=== PATIENT | female | born 1995 | race Caucasian/White ===

== ENCOUNTER 2024-02-15 08:54 | Day surgery (SDC) | payer OTHER ==
[~2024-02-15] VITALS: Ht 175.3 cm; Wt 72.7 kg
[~2024-02-15 08:54] MED LIST: CEFAZOLIN SODIUM 2 GM/20 ML SYR IV SCH; CELEXA20 MG PO; DULOXETINE HCL60 MG PO; IBLOOD GLUCOSE TEST STRIP 1 EA TEST VI PRN; IMPLANON68 MG; LACTATED RINGER'S 1,000 ML IV SCH; LIDOCAINE HCL 1% 5 ML SDV INJ ONE; ORSYTHIA1 EACH PO; TRAMADOL HCL50 MG PO; ZOLOFT50 MG PO
[2024-02-15 09:29] VITALS: BP 116/70
[2024-02-15] MEDS ORDERED: OXYMETAZOLINE HCL 30 ML BTL NAS SCH (10:00)
[2024-02-15] MEDS ORDERED: fentaNYL citrate 100 MCG/2 ML VIAL ONE (10:27)
[2024-02-15] MEDS ORDERED: DEXAMETHASONE SOD PHOS 4 MG/ML VIAL ONE (10:27)
[2024-02-15] MEDS ORDERED: propofoL 200 MG/20 ML VIAL ONE (10:27)
[2024-02-15] MEDS ORDERED: LIDOCAINE HCL 2% 5 ML SDV ONE (10:27)
[2024-02-15] MEDS ORDERED: MIDAZOLAM HCL 2 MG/2 ML VIAL ONE (10:27)
[2024-02-15] MEDS ORDERED: ondansetron HCL 4 MG/2 ML VIAL ONE (10:27)
[2024-02-15] MEDS ORDERED: droPERidol 5 MG/2 ML VIAL IV PRN (11:30)
[2024-02-15] MEDS ORDERED: PROCHLORPERAZINE EDISYLATE 10 MG/2 ML VIAL IV PRN (11:30)
[2024-02-15] MEDS ORDERED: ondansetron HCL 4 MG/2 ML VIAL IV PRN (11:30)
[2024-02-15] MEDS ORDERED: fentaNYL citrate 50 MCG/ML SDV IV PRN (11:30)
[2024-02-15] MEDS ORDERED: IBLOOD GLUCOSE TEST STRIP 1 EA TEST VI PRN (11:30)
[2024-02-15] MEDS ORDERED: HYDROmorphone HCL 1 MG/ML SYR IV PRN (11:30)
[2024-02-15] MEDS ORDERED: NALOXONE HCL 0.4 MG SYR IV PRN (11:30)
[2024-02-15] MEDS ORDERED: ACETAMINOPHEN 1,000 MG/100 ML VIAL ONE (11:33)
--- NOTE | 2024-02-15 12:00 | NUR ---
02/15/24 1200 Ca Manriquez 1143 PT ARRIVED IN PACU NON RESPONSIVE TO NOXIOUS STIMULI WITH OPA IN PLACE. 1156 PT REACTIVE. OPA REMOVED. 1200 OXYGEN REMOVED. SATS 98-100%. NO C/O'S.
[2024-02-15 12:25] VITALS: BP 114/70
--- NOTE | 2024-02-15 12:29 | NUR ---
LE 1225 PT RETURNED FROM PACU WIDEA AWAKE C/O SINUS PAIN 2-3/10. SIPPING ON WATER. BABY AND PT'S DAD AT BEDSIDE. CALL LIGHT IN PLACE. 1230 JELLO AND CRACKERS GIVEN.
[2024-02-15] MEDS ORDERED: HYDROCODONE/ACETA 5/325 TAB PO PRN (12:30)
--- NOTE | 2024-02-15 12:48 | OR ---
[facility] [address] [place], [place] [address] Signed DATE OF OPERATION: 02/15/2024 SURGEON: Sukhjinder Krishnamurthy MD PREOPERATIVE DIAGNOSIS: Inferior turbinate hypertrophy. POSTOPERATIVE DIAGNOSIS: Inferior turbinate hypertrophy. PROCEDURE: Cautery bilateral inferior turbinates. 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 PREOPERATIVE HISTORY: Elida is a 28-year-old young lady with chronic nasal congestion, obstruction, unresponsive to appropriate medications. CAT scan of sinuses has been negative. Exam has shown enlarged inferior turbinates and she is taken to the operating room for the above-mentioned procedures. OPERATIVE PROCEDURE AND FINDINGS: After informed consent, the patient was taken to the operating room, placed in the supine position where general LMA anesthesia was induced. The patient and procedure were verified. The patient received preoperative intranasal oxymetazoline and intravenous Ancef. The headlight speculum exam of the nasal cavity showed decongested inferior turbinates, mild septal deformity, nonobstructive. The left side was approached first. Inferior turbinate cauterized multiple transmucosal passes with a long handle needle point cautery on the medial and inferior surfaces of the inferior turbinate starting anteriorly extending all the way back posteriorly. Excellent shrinkage of the turbinate was obtained. Minimal bleeding. Same procedure on the right inferior turbinate. Hemostasis was verified. Packing was placed, trimmed Merocel equal amount each side coated with Neosporin and tied anteriorly over a pad. The pharynx was suctioned clear of blood and secretions. 1% lidocaine with epinephrine was sprayed onto the packing. The patient was then awakened, extubated, transported to recovery room in good condition. No complications. BLOOD LOSS: Minimal. Electronically Signed By: SUKHJINDER KRISHNAMURTHY MD 02/15/24 1248 PATIENT NAME: ELIDA DE LA ROSA OPERATIVE REPORT DATE OF : [birth year] REPORT #: [id number] PHYSICIAN: SUKHJINDER KRISHNAMURTHY MD PCP: NO PRIMARY CARE PHYSICIAN REPORT IS CONFIDENTIAL AND NOT TO BE RELEASED WITHOUT AUTHORIZATION [facility] [address] [place] [id number] Signed SPECIMEN: None. DRAINS: No drains. PACKING: One piece of Merocel, each nostril. Sukhjinder Krishnamurthy MD GC/MODL /[id number] Copies: ~ Electronically Signed By: SUKHJINDER KRISHNAMURTHY MD 02/15/24 1248 PATIENT NAME: ESTRELLAELIDA OPERATIVE REPORT DATE OF : [birth year] REPORT #: [id number] PHYSICIAN: SUKHJINDER KRISHNAMURTHY MD PCP: NO PRIMARY CARE PHYSICIAN REPORT IS CONFIDENTIAL AND NOT TO BE RELEASED WITHOUT AUTHORIZATION
--- NOTE | 2024-02-15 13:20 | NUR ---
IN PT ROOM D/T CALL LIGHT. PT REPORTS SCANT AMOUNT OF DRAINAGE FROM NOSE. DRIP PAD PLACED, PT STATES VERBAL UNDERSTANDING TO DRIP PAD DEMONSTRATION. DISCUSSED CIRCUMSTANCES TO CALL REGARDING SATURATION OF DRIP PAD, PT STATES VERBAL UNDERSTANDING OF INFORMATION. PT STATES PAIN IS TOLERABLE AT 3/10, PT STATES SHE SUFFERS FROM HEADACHES CHRONICALLY, PT DENIES NEED FOR PRN PAIN MED AT THIS TIME. ICE WATER REFILLED. CALL LIGHT WITHIN REACH, NO FURTHER NEEDS AT THIS TIME.
[2024-02-15 13:39] VITALS: BP 114/69
--- NOTE | 2024-02-15 13:40 | NUR ---
IN PT ROOM FOR VS AND ASSESSMENT. PT REPORTS PAIN REMAINS AT SAME 3/10 AND STATES IT IS TOLERABLE AT THIS TIME. PT REPORTS SCANT AMOUNT OF DRAINAGE FROM NOSE. DRIP PAD PLACED W/SMALL AMOUNT OF SS DRAINAGE AT THIS TIME. PT SITS AT BEDSIDE AND REPORTS NO DIZZINESS OR NAUSEA AT THIS TIME. PT TO RESTROOM W/THIS RN STANDBY ASSIST. PT URINE VOID 200 ML OF CLEAR/YELLOW URINE. PT GETTING DRESSED IN ROOM, THIS RN ASSISTS W/PANTS TO AVOID PT BENDING OVER (PT EDUCATED AT THIS TIME ABOUT AVOIDING INCREASING HEAD PRESSURE D/T INCREASED BLEEDING RISK). PT CONTINUING TO GET DRESSED. CALL LIGHT WITHIN REACH. FATHER AND DAUGHTER IN ROOM.
--- NOTE | 2024-02-15 14:00 | NUR ---
IN PT ROOM FOR DISCHARGE EDUCATION. PT STATES VERBAL UNDERSTANDING OF DISCHARGE EDUCATION AT THIS TIME. FATHER IN ROOM AT TIME OF DISCHARGE EDUCATION. BOTH STATE NO FURTHER QUESTIONS AT THIS TIME. NEW DRIP PAD PLACED, SMALL AMOUNT OF SS DRAINAGE PRESENT. PT STATES VERBAL UNDERSTANDING OF DEMONSTRATION, SUPPLIES PROVIDED. IV DC'ED, WNL, GAUZE/COBAN IN PLACE. PT OFF OF UNIT VIA WC TO PASSENGER SIDE OF VEHICLE. ALL BELONGINGS IN PT POSSESSION AT THIS TIME. PT REPORTS NO FURTHER NEEDS.
== END 2024-02-15 14:00 | disposition home or self-care (01) ==
LOC: DS 08:54
PROVIDERS: ATTEND Otolaryngology
PROC: 095L0ZZ Destruction of Nasal Turbinate, Open Approach (ICD-10-PCS; principal; 2024-02-15 11:30)
DX: J34.3 Hypertrophy of nasal turbinates (principal)
CPT/HCPCS: 36415; 84703; J0131; J0690; J1100; J2001; J2250; J2405; J2704; J3010; J7121

== ENCOUNTER 2024-06-17 07:41 | Emergency (ER) | payer OTHER ==
[~2024-06-17] VITALS: Ht 175.3 cm; Wt 64.6 kg
[~2024-06-17 07:41] MED LIST changes: -CEFAZOLIN SODIUM 2 GM/20 ML SYR IV SCH; -IBLOOD GLUCOSE TEST STRIP 1 EA TEST VI PRN; -LACTATED RINGER'S 1,000 ML IV SCH; -LIDOCAINE HCL 1% 5 ML SDV INJ ONE
[2024-06-17] MEDS ORDERED: CLONAZEPAM0.5 MG PO (07:56)
[2024-06-17] MEDS ORDERED: KETOROLAC TROMETHAMINE 30 MG/ML VIAL IV ONE (08:00)
[2024-06-17] MEDS ORDERED: SODIUM CHLORIDE 0.9% 1,000 ML IV ONE (08:00)
[2024-06-17 08:18] LABS: BASOPHILS 0.2 % (0-2); EOSINOPHILS 1.1 % (0-6); HEMOGLOBIN 13.7 g/dL (12.0-18.0); LYMPHOCYTES 21.3 % (24-44); MCH 29.3 (27-36); MCHC 34.2 g/dl (30-36); MCV 85.9 fl (81-99); MONOCYTES 5.4 % (0-12); PLATELET COUNT 304 K/uL (140-440); RBC 4.66 M/ul (4.3-5.7); RDW 13.1 (10.5-15.0)
[2024-06-17 08:28] LABS: INR 1.04 (0.80-1.30); PROTIME 13.2 Sec (11.2-14.2)
[2024-06-17 08:30] LABS: PARTIAL THROMBOPLASTIN TIME 28.6 Sec (22.9-41.3)
[2024-06-17 08:33] LABS: ALBUMIN 3.8 g/dL (3.4-5.0); ALBUMIN/GLOBULIN RATIO 1.46 (1.1-2.4); ANION GAP 12.7 (7-21); BILIRUBIN, TOTAL 0.4 ng/dL (0.2-1.0); BUN/CREATININE RATIO 18.39 (6.0-28.6); CALCIUM 8.8 mg/dL (8.5-10.1); CREATININE, SERUM 0.87 mg/dL (0.55-1.02); POTASSIUM 3.7 mmol/L (3.5-5.1); PROTEIN, TOTAL 6.4 g/dL (6.4-8.2)
[2024-06-17 08:34] LABS: BILIRUBIN, URINE NEGATIVE (negative); BLOOD/HGB, URINE LARGE (Negative); KETONE, URINE NEGATIVE (Negative); LEUK ESTERASE, URINE TRACE (negative); NITRITE, URINE NEGATIVE (negative)
[2024-06-17 08:40] LABS: EPITHELIAL CELLS, URINE SQUAMOUS 2+ /lpf (0-1+)
[2024-06-17 08:41] LABS: BACTERIA, URINE 1+ /hpf (negative); CRYSTALS, URINE NONE SEEN (0-1+); RED BLOOD CELLS, URINE 41-50 /hpf (0-5)
[2024-06-17 08:42] LABS: CASTS, URINE NONE SEEN \\lpf; COLLECTION TYPE, URINE CLEAN CATCH; REFLEX CULTURE, URINE No (No)
[2024-06-17 11:29] VITALS: BP 108/73
== END 2024-06-17 11:08 | disposition home or self-care (01) ==
LOC: ED 07:41
PROVIDERS: Emergency Medicine
DX: N93.9 Abnormal uterine and vaginal bleeding, unspecified (principal); Z97.5 Presence of (intrauterine) contraceptive device; Z88.1 Allergy status to other antibiotic agents; Z79.899 Other long term (current) drug therapy
CPT/HCPCS: 36415; 76830; 76856; 80053; 81001; 84703; 85025; 85610; 85730; 96374; 99284-25; J1885; J7030

== ENCOUNTER 2025-06-26 19:20 | Emergency (ER) | payer OTHER ==
[~2025-06-26] VITALS: Ht 175.3 cm; Wt 55.0 kg
[~2025-06-26 19:20] MED LIST changes: +CLONAZEPAM0.5 MG PO
[2025-06-26] MEDS ORDERED: DEXAMETHASONE SOD PHOS 10 MG/ML VIAL PO ONE (20:00)
[2025-06-26] MEDS ORDERED: FAMOTIDINE 20 MG TAB PO ONE (20:00)
[2025-06-26] MEDS ORDERED: METHYLPREDNISOLO4 M1 PO (21:12)
[2025-06-26] MEDS ORDERED: EPIPEN 2-P0.3 MG/0.3 IM (21:12)
[2025-06-26 21:15] VITALS: BP 114/77
== END 2025-06-26 21:20 | disposition home or self-care (01) ==
LOC: ED 19:20
DX: T63.461A Toxic effect of venom of wasps, accidental (unintentional), initial encounter (principal); R22.1 Localized swelling, mass and lump, neck; Z88.1 Allergy status to other antibiotic agents; Z79.899 Other long term (current) drug therapy
CPT/HCPCS: 99282; J1100; Q0163

== ENCOUNTER 2025-08-14 09:35 | Emergency (ER) | payer OTHER ==
[~2025-08-14] VITALS: Ht 175.3 cm; Wt 57.0 kg
--- OUTSIDE RECORDS SUMMARY | ~2025-08-14 | XMS | Continuity of Care Document ---
Demographics + + + | Address | [address] | | | [place] [address] | + + + | Preferred Language | Unknown | + + + | Marital Status | | + + + | Evangelical Affiliation | Unknown | + + + | Race | White | + + + | Ethnic Group | Not or | + + + Author + + + | Author | [facility] | + + + | Organization | [facility] | + + + | Address | [address] | | | [place] [address] | + + + | Phone | | + + + Care Team Providers + + + + | Care Audio Production Engineer Name | Role | Phone | + + + + Unavailable | Unavailable | + + + + Unavailable | Unavailable | + + + + Allergies No information. Encounters No information. Functional Status No information. Immunizations No information. Medications + + + + | date | description | facility | + + + + | (no date) | clonAZEpam | [facility] | | | | [facility] | + + + + | (no date) | SERTRALINE HCL | [facility] | | | | [facility] | + + + + | (no date) | DULOXETINE HCL | [facility] | | | | [facility] | + + + + | 2025-06-26 00:00 | EPINEPHRINE | [facility] | | | | [facility] | + + + + | 2025-06-26 00:00 | METHYLPREDNISOLONE | [facility] | | | | [facility] | + + + + Problems + + + + | date | description | facility | + + + + | 2025-06-26 00:00 | Wasp sting | [facility] | | | | [facility] | + + + + Procedures No information. Results/Labs No information. Social History +--------+ + + | date | description | facility | +--------+ + + Vital Signs + + + +---------+ | date | measurement | value | units | + + + +---------+ | 2025-06-26 00:00 | BMI | 17.9 | kg/m2 | + + + +---------+ | 2025-06-26 00:00 | BP_diastolic | 77 | mmHg | + + + +---------+ | 2025-06-26 00:00 | BP_systolic | 114 | mmHg | + + + +---------+ | 2025-06-26 00:00 | heart_rate | 67 | /min | + + + +---------+ | 2025-06-26 00:00 | height_metric | 175.26 | cm | + + + +---------+ | 2025-06-26 00:00 | height_standard | 69 | in | + + + +---------+ | 2025-06-26 00:00 | o2_saturation | 99 | % | + + + +---------+ | 2025-06-26 00:00 | respiration_rate | 22 | /min | + + + +---------+ | 2025-06-26 00:00 | | 97.9 | F | | | temperature_standar | | | | | d | | | + + + +---------+ | 2025-06-26 00:00 | weight_metric | 55.001 | kg | + + + +---------+ | 2025-06-26 00:00 | weight_standard | 121.256 | lb | + + + +---------+"
[~2025-08-14 09:35] MED LIST changes: +EPIPEN 2-P0.3 MG/0.3 IM; +METHYLPREDNISOLO4 M1 PO
[2025-08-14] MEDS ORDERED: BUSPIRONE HCL10 MG PO (09:50)
[2025-08-14] MEDS ORDERED: ACETAMINOPHEN 500 MG TAB PO ONE (11:15)
[2025-08-14 13:44] VITALS: BP 113/78
== END 2025-08-14 13:44 | disposition home or self-care (01) ==
LOC: ED 09:35
DX: S02.19XA Other fracture of base of skull, initial encounter for closed fracture (principal); S02.31XA Fracture of orbital floor, right side, initial encounter for closed fracture; S06.5X0A Traumatic subdural hemorrhage without loss of consciousness, initial encounter; Z88.1 Allergy status to other antibiotic agents; W22.02XA Walked into lamppost, initial encounter
CPT/HCPCS: 36415; 70450; 72125; 99284-25; A9270; G0480